=== PATIENT | male | born 1995 | race Two or more races ===

== ENCOUNTER 2018-07-21 06:33 | Day surgery (SDC) | payer OTHER ==
[2018-07-21] MEDS ORDERED: LACTATED RINGERS 1000 ML IV PRN (07:00)
[2018-07-21] MEDS ORDERED: LIDOCAINE 0.5% INJ-PF (5 MG/ML) 50 ML SDV SUBCUT PRN (07:00)
[2018-07-21] MEDS ORDERED: BUPIVACAINE HCL 0.5%-EPI 1:200000 INJ/PF 30 ML VIAL ONE (07:08)
[2018-07-21] MEDS ORDERED: MINERAL OIL (STERILE) 10 ML VIAL ONE (07:08)
[2018-07-21] MEDS ORDERED: BUPIVACAINE HCL 0.5%/EPI 1:200000 INJ 1.8 ML CARTRIDGE ONE (07:08)
[2018-07-21] MEDS ORDERED: OXYMETAZOLINE HCL 0.05% NASAL SPRAY 15 ML BOTTLE ONE (07:08)
[2018-07-21] MEDS ORDERED: BACITRACIN ZINC OINTMENT 15 GM ONE (07:08)
[2018-07-21] MEDS ORDERED: MIDAZOLAM 2 MG/2 ML INJ ONE (07:23)
[2018-07-21] MEDS ORDERED: LIDOCAINE 2% INJ-PF (20 MG/ML) 10 ML AMPUL ONE (07:23)
[2018-07-21] MEDS ORDERED: ONDANSETRON HCL INJ/PF 4 MG/2 ML SDV ONE (07:23)
[2018-07-21] MEDS ORDERED: FENTANYL CITRATE INJ/PF 100 MCG/2 ML AMPUL ONE ×2 (07:24→10:55)
[2018-07-21] MEDS ORDERED: ACETAMINOPHEN 1,000 MG/100 ML RTUPB IV ONE (07:24)
[2018-07-21] MEDS ORDERED: PROPOFOL INJ 200 MG/20 ML VIAL IV ONE (07:24)
[2018-07-21] MEDS ORDERED: HYDROMORPHONE HCL INJ/PF 2 MG/ML AMPULE ONE (07:24)
[2018-07-21] MEDS ORDERED: SUCCINYLCHOLINE CHLORIDE INJ 200 MG/10 ML VIAL ONE (07:24)
[2018-07-21] MEDS ORDERED: DEXAMETHASONE SOD PHOS INJ 10 MG/1 ML VIAL ONE (07:24)
[2018-07-21] MEDS ORDERED: CEFAZOLIN 2 GM/D5W RTU 2 GM/50 ML RTUPB IV ONE (07:34)
[2018-07-21] MEDS ORDERED: SCOPOLAMINE HYDROBROMIDE 1.5 MG PATCH.TD72 TD PRN (08:16)
[2018-07-21] MEDS ORDERED: BALANCED SALT IRRIG SOLN COMB2 15 ML BOTTLE ONE (08:20)
[2018-07-21] MEDS ORDERED: RINGERS SOLUTION,LACTATED 250 ML IV ONE (09:00)
--- NOTE | 2018-07-22 10:57 | [facility]ICARE OPERATIVE REPORT E ---
[facility] NAME: DIVYA REAGAN AGE: 23Y DATE OF SURGERY: 07/21/2018 ROOM: PREOPERATIVE DIAGNOSES: 1. Nasal septal deviation, acquired. 2. Chronic nasal dyspnea. 3. Bilateral inferior turbinate hypertrophy. POSTOPERATIVE DIAGNOSES: 1. Nasal septal deviation, acquired. 2. Chronic nasal dyspnea. 3. Bilateral inferior turbinate hypertrophy. OPERATION PERFORMED: 1. Septoplasty with major septal cartilage repair with cartilage grafts utilized. 2. Bilateral inferior turbinate hypertrophy using a submucous resection technique. SURGEON: AGSU FARRELL D.O. ANESTHESIA: General endotracheal tube. ANESTHESIA STAFF: SEBAS Bowles ESTIMATED BLOOD LOSS: 75 mL. FLUIDS: 1000 mL. COMPLICATIONS: None. DRAINS: None. SPONGE COUNT: Verified. MATERIALS FORWARDED SPECIMEN: None. NEEDLE COUNT: Verified. FINDINGS: 1. Severe left caudal septal cartilage deviation/deformity with multiple fractures noted along with excessive cartilage present. There were also maxillary crest spurs and septal spurs noted. There was a resulting rent of the left septal flap. 2. Bilateral turbinate hypertrophy that was significant in nature and there was also a very significant bony hypertrophic component of the inferior turbinate. 3. Large right caudal septal graft. INDICATIONS: This is a 23-year-old male who was seen and evaluated in the [facility] office. The patient had been referred for, and he complained of, a longstanding history of difficult nasal airflow over the years consistent with chronic nasal dyspnea. The patient reported a history of nasal trauma in the past. The patient is noted to have severe left caudal septal deformities with near-complete obstruction of the left nasal passage and turbinate hypertrophy. Recommendation and plan discussed with the patient was for septoplasty and bilateral inferior turbinate reduction. The procedures and all of their risks and complications were all discussed in detail with the patient. He voiced an understanding of the described surgical plan, agreed to proceed, and consent was obtained. PROCEDURE: The patient was taken to the main operating room and was placed on the operating room table in the supine position. Appropriate monitors were placed. Using mask and IV access, general anesthesia was induced. The patient next underwent a nasal examination with injection of local anesthetic with epinephrine. Two Afrin-soaked neuro patties were placed per side. The patient was then positioned and prepped and draped in a sterile fashion for nasal surgery. The Afrin-soaked neuro patties were next removed and a hemitransfixion incision was made. There was difficult and delicate dissection and elevation of the mucoperichondrial and mucoperiosteal flaps, especially on the left due to the severity of cartilage damage and scar tissue present. The bony cartilaginous junction was next identified and divided with the most deviated portions of septal cartilage removed. The damaged portion of the caudal septal cartilage was also removed with remaining elements contoured and prepared for grafting. The septum was also freed from the maxillary crest and anterior nasal spine. The chisels were used to remove the maxillary crest spurs and septal spur. There was a greater than 1.5 x 1.5 cm cartilaginous L strut preserved. At this point the turbinate bipolar wands were used to make 2 passes in each inferior turbinate. The anterior portion of the inferior turbinate was next entered with either Cordell scissors or the turbinate microdebrider system. At this point the turbinate microdebrider system at a setting of 1500 rpm was used to perform submucous resection on each side. The excessive bony prominence of the right inferior turbinate especially was addressed. The anterior 1 cm of turbinate bone was removed. At this point a [place] elevator was used to outfracture each inferior turbinate, which was limited due to the significant bony component of the inferior turbinates. At this point cartilage that had been removed was utilized and fashioned into a large right caudal septal graft that was fixed in placed with 5-0 Prolene suture. Once complete the caudal septum with graft was brought back into the midline and secured at the anterior nasal spine with 5-0 Prolene suture. The nose was thoroughly suctioned and irrigated. Chromic suture was used to reapproximate the left septal rent. The thin portions of the perpendicular plate of ethmoid were used deep to the left septal rent for stabilization and support. At this point the hemitransfixion incision was reapproximated and the chromic suture was also utilized to perform a septal mattress whipstitch. At this point 1 Merocel pack with Bacitracin ointment was placed per side and these were secured at the caudal aspect with 4-0 Prolene suture. The patient's nose was then cleaned and dried, and he was returned to the anesthesia staff. He was allowed to emerge from general anesthesia and was extubated in the main operating room without difficulty. He was then transported to the postanesthesia recovery unit in stable condition. There were no complications. DICTATING PHYSICIAN: AGUS FARRELL D.O. [id number] PHY#: [id number] ID: [id number] JOB#: [id number] ACCT: [id number] cc:AGUS FARRELL D.O. >
== END 2018-07-21 12:04 | disposition home or self-care (01) ==
LOC: SC 06:33
PROVIDERS: ATTEND Otolaryngology
DX: J34.2 Deviated nasal septum (principal); J34.3 Hypertrophy of nasal turbinates; M95.0 Acquired deformity of nose; R06.09 Other forms of dyspnea
CPT/HCPCS: 30520; 30140; J2250; J3490 ×5; J3010; J1170; J0330; J2405; J2704; J1100; J0690; J0131; 160